=== PATIENT | male | born 1990 | race African-American/Black ===

== ENCOUNTER 2017-07-12 22:40 | Emergency (ER) | payer OTHER ==
--- NOTE | 2017-07-12 23:29 | XRAY Preliminary Report ---
Exam: XR HAND 3 VIEW RT IMPRESSION: 1. Bases of the fourth and fifth metacarpals are dislocated dorsally relative to the carpal row. 2. Small avulsion fracture fragments, likely off the base of the fourth metacarpal and/or hamate bone . [facility] SITE ID: [id number]
--- NOTE | 2017-07-12 23:29 | XRAY Report ---
EXAM: RIGHT HAND RADIOGRAPHY EXAM DATE: 07/12/2017 11:04 PM. CLINICAL HISTORY: Hand pain, injury. COMPARISON: None. TECHNIQUE: 3 views. FINDINGS: Bones and joints: Bases of the fourth and fifth metacarpals are dislocated dorsally relative to the c arpal row. Small avulsion fracture fragments, likely off the base of the fourth metacarpal and/or ham ate bone. Soft Tissues: Swelling. IMPRESSION: 1. Bases of the fourth and fifth metacarpals are dislocated dorsally relative to the carpal row. 2. Small avulsion fracture fragments, likely off the base of the fourth metacarpal and/or hamate bone . [facility] Referring Provider Line: [phone] SITE ID: [id number]
[2017-07-12] MEDS ORDERED: fentaNYL 100 MCG/2 ML VIAL IVP STA (23:43)
[2017-07-12] MEDS ORDERED: LORazepam 2 MG/ML VIAL IVP STA (23:43)
[2017-07-12] MEDS ORDERED: LIDOCAINE 2% 10 ML MDV SUBQ STA (23:44)
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
[2017-07-13 00:37] VITALS: BP 115/73
== END 2017-07-13 00:42 | disposition home or self-care (01) ==
LOC: ED 22:40
DX: S62.304A Unspecified fracture of fourth metacarpal bone, right hand, initial encounter for closed fracture (principal); S62.306A Unspecified fracture of fifth metacarpal bone, right hand, initial encounter for closed fracture; W22.09XA Striking against other stationary object, initial encounter; Y92.009 Unspecified place in unspecified non-institutional (private) residence as the place of occurrence of the external cause
CPT/HCPCS: 26605; 99283; 99284